=== PATIENT | male | born 1970 | race Caucasian/White ===

== ENCOUNTER 2016-07-11 19:46 | Day surgery (SDC) | payer BC ==
[~2016-07-11] VITALS: Ht 185.4 cm; Wt 148.5 kg
[~2016-07-11 19:46] MED LIST: AMLODIPINE BESYL5 MG PO; FLOVENT 22120 INHALA IH; HYDRODIURIL,ORE25 MG PO; LISINOPRIL40 MG PO; PERCOCET 5/31 TABLET PO; SINGULAIR10 MG PO
[2016-07-11 21:19] LABS: BASOPHIL COUNT 0.1 K/uL (0-0.1); EOSINOPHIL COUNT 0.8 K/uL (0-0.3); HEMATOCRIT 44.6 % (38.0-50.0); IMMATURE GRANULOCYTE (%) 0.2 % (0.0-0.7); INSTRUMENT ABS NEUTROPHIL CT 4.1 K/uL; LYMPHOCYTE COUNT 2.4 K/uL (1.0-2.8); MCH 27.3 PG (29.0-34.0); MCV 82.7 FL (86-99); MEAN PLAT.VOLUME 10.8 uM^3 (9.0-12.4); MONOCYTE (%) 9.3 % (3-12); MONOCYTE COUNT 0.8 K/uL (0-0.8); NEUTROPHIL (%) 50.2 % (45-76); NEUTROPHIL COUNT 4.1 K/uL (1.8-6.4); PLATELET COUNT 266 K/uL (156-360); RBC DIS.WIDTH-CV 14.4 % (11.8-14.6); RBC DIS.WIDTH-SD 43.1 % (39-53); RED BLOOD COUNT 5.39 M/uL (4.00-5.50); WHITE BLOOD COUNT 8.3 K/uL (4.1-10.2)
[2016-07-11 21:27] LABS: CHLORIDE 106 mEq/L (99-109); SODIUM 140 mEq/L (136-147)
[2016-07-11 21:29] LABS: GLUCOSE 118 mg/dL (70-99)
[2016-07-11 21:31] LABS: ANION GAP 12 MEQ/L (2-14)
[2016-07-11 21:33] LABS: GFR ESTIMATE (CALCULATED) > 59 mL/min/
[2016-07-11 21:34] LABS: UREA NITROGEN (BUN) 13 mg/dL (9-23)
[2016-07-11 23:32] VITALS: BP 146/93
[2016-07-12] MEDS ORDERED: FLOVENT 22120 INHALA IH (02:07)
== END 2016-07-12 04:15 | disposition home or self-care (01) ==
LOC: EME 19:46 → SDC 23:36
PROVIDERS: Emergency Medicine
PROC: 0DC28ZZ Extirpation of Matter from Middle Esophagus, Via Natural or Artificial Opening Endoscopic (ICD-10-PCS; principal; 2016-07-11)
DX: T18.128A Food in esophagus causing other injury, initial encounter (principal); K20.0 Eosinophilic esophagitis; R09.89 Other specified symptoms and signs involving the circulatory and respiratory systems; J45.909 Unspecified asthma, uncomplicated; I10 Essential (primary) hypertension; Z91.018 Allergy to other foods
CPT/HCPCS: 80048; 85025; 99281; 99285; J0330; J1100; J2405; J7030